=== PATIENT | male | born 1965 | race Two or more races ===

== ENCOUNTER 2023-12-30 11:50 | Emergency (ER) | payer MEDICAID ==
[~2023-12-30] VITALS: Ht 182.9 cm; Wt 86.6 kg
[2023-12-30 12:01] VITALS: O2SAT 98
[2023-12-30] MEDS ORDERED: CEFTRIAXONE 1GM BAG (ER ONLY) 0 ML IV ONE (12:26)
[2023-12-30 12:30] LABS: BASOPHILS % (AUTO) 0.2 % (0.0-2.0); EOSINOPHILS # (AUTO) 0.2 K/uL (0.0-0.7); EOSINOPHILS % (AUTO) 1.5 % (0.0-6.0); HEMATOCRIT 36 % (39-51); HEMOGLOBIN 12.4 g/dL (13.5-17.5); LYMPHOCYTES # (AUTO) 1.1 K/uL (0.8-4.8); LYMPHOCYTES % (AUTO) 8.5 % (20.0-44.0); MEAN CORPUSCULAR HEMOGLOBIN 32 PG (26.0-33.0); MEAN CORPUSCULAR HGB CONC 34 g/dl (31.0-36.0); MEAN CORPUSCULAR VOLUME 95 fL (80-96); MONOCYTES # (AUTO) 0.4 K/uL (0.1-1.30); MONOCYTES % (AUTO) 3.4 % (2.0-12.0); NEUTROPHILS % (AUTO) 86.4 % (43.0-81.0); PLATELET COUNT (AUTO) 377 K/uL (150-450); RED BLOOD CELL COUNT(AUTO) 3.84 MIL/uL (4.5-6.0); RED CELL DISTRIBUTION WIDTH 13.8 % (11.5-15.0); WHITE BLOOD COUNT (AUTO) 12.7 K/uL (4.3-11.0)
[2023-12-30 12:46] LABS: LACTIC ACID 0.8 mmol/L (0.4-2.0)
[2023-12-30] MEDS: CEFEPIME 1 GM in IV D5W 50 ML IV ONE (12:52)
[2023-12-30] MEDS: IV NS 0.9% 1,000 ML BAG IV ONE (12:52)
[2023-12-30 12:54] LABS: APPEARANCE,URINE Clear (CLEAR); BILIRUBIN,URINE Negative (NEGATIVE); BLOOD, URINE Small Ery/uL (NEGATIVE); COLOR,URINE YELLOW (YELLOW); KETONES,URINE Negative (NEGATIVE); LEUKOCYTE ESTERASE ,URINE Negative (NEGATIVE); NITRITE, URINE Negative (NEGATIVE); PH,URINE 5.5 (5.0-8.0); PROTEIN,URINE 100 mg/dl (NEGATIVE); UGLUCOSE Negative (NEGATIVE); UROBILINOGEN,URINE 0.2 EU/dL (0.2)
[2023-12-30 13:04] LABS: CALCIUM, SERUM 8.7 mg/dL (8.5-10.1); CARBON DIOXIDE 23 mmol/L (21-32); CHLORIDE 109 mmol/L (98-107); CREATININE 2.2 mg/dL (0.6-1.3); GLUCOSE 92 mg/dL (74-106); SODIUM SERUM 139 mmol/L (136-145); UREA NITROGEN, BLOOD 32 mg/dL (7-18)
[2023-12-30 13:05] LABS: INR 1.04 (0.91-1.10); PARTIAL THROMBOPLASTIN TIME 32.3 SEC (24.3-34.3); PROTHROMBIN TIME 10.7 SECS (9.2-11.1)
[2023-12-30 13:05] LABS: ADD URINE CULTURE NO; BACTERIA,URINE Few /HPF (None Seen); SQUAMOUS EPITHELIAL CELL,UR Few /HPF (None Seen)
[2023-12-30 13:07] LABS: ALANINE AMINOTRANSFERASE 36 U/L (12-78); ALBUMIN 1.8 g/dL (3.4-5.0); ALKALINE PHOSPHATASE 99 U/L (46-116); ASPARTATE AMINOTRANSFERASE 39 U/L (15-37); BILIRUBIN,DIRECT 0.2 mg/dL (0.0-0.2); BILIRUBIN,TOTAL 0.5 mg/dL (0.2-1.0); TOTAL PROTEIN, SERUM 7.4 g/dL (6.4-8.2)
[2023-12-30] MEDS ORDERED: GLYC2TAB21 GT (13:08)
[2023-12-30] MEDS ORDERED: ALBU2.5V38 IH ×2 (13:08)
[2023-12-30] MEDS ORDERED: AMOX1TAB15 GT (13:08)
[2023-12-30] MEDS ORDERED: ACET160E36 GT ×2 (13:08)
[2023-12-30] MEDS ORDERED: GABA300C GT (13:08)
[2023-12-30] MEDS ORDERED: LACO10SO GT (13:08)
[2023-12-30] MEDS ORDERED: LACT10SO29 GT (13:08)
[2023-12-30] MEDS ORDERED: ATOR20TA GT (13:08)
[2023-12-30] MEDS ORDERED: IPRA0.2S9 IH ×2 (13:08)
[2023-12-30] MEDS ORDERED: FURO40TA5 GT (13:08)
[2023-12-30] MEDS ORDERED: DOCU-141 GT (13:08)
[2023-12-30] MEDS ORDERED: CRAN300T GT (13:08)
[2023-12-30] MEDS ORDERED: NA P133E RC (13:08)
[2023-12-30] MEDS ORDERED: LINE600T12 GT (13:08)
[2023-12-30] MEDS ORDERED: CARV3.122 GT (13:08)
[2023-12-30] MEDS ORDERED: BISA10SU11 RC (13:08)
[2023-12-30] MEDS ORDERED: LOSA25TA27 GT (13:08)
[2023-12-30] MEDS ORDERED: NUTR250L62 GT (13:08)
[2023-12-30] MEDS ORDERED: LEVE100S GT (13:08)
[2023-12-30] MEDS ORDERED: QUET50TA GT (13:09)
[2023-12-30] MEDS ORDERED: MULT-213 GT (13:09)
[2023-12-30] MEDS ORDERED: OXYC5TAB3 GT (13:09)
[2023-12-30] MEDS ORDERED: SENN8.6T19 GT (13:09)
[2023-12-30] MEDS ORDERED: APIX5TAB GT (13:09)
[2023-12-30] MEDS ORDERED: MAGN400O6 GT (13:09)
[2023-12-30] MEDS ORDERED: CLOP75TA15 GT (13:09)
[2023-12-30] MEDS ORDERED: CRAN3875 GT (13:09)
[2023-12-30] MEDS: VANCOMYCIN 1 GM in IV D5W 250 ML IV ONE (13:20)
[2023-12-30] MEDS ORDERED: ACETAMINOPHEN 650 MG/SUPP.RECT RC ONE (14:15)
[2023-12-30] MEDS: ACETAMINOPHEN 650 MG/SUPP.RECT RC ONE (14:28)
[2023-12-30] MEDS ORDERED: NA PHOS,M-B/NA PHOS,DI-BA 1 EA ENEMA RC PRN (16:30)
[2023-12-30] MEDS ORDERED: Z GUARD REMEDY 4 OZ OINT TP PRN (17:00)
[2023-12-30] MEDS: LACOSAMIDE ORAL SOLN 50 MG/5 ML UDC GT SCH (17:00)
[2023-12-30] MEDS ORDERED: Medication Not On Formulary EA (Quetiapine Fumarate (Seroquel) 50 MG) GT SCH (17:00)
[2023-12-30] MEDS: DOCUSATE SODIUM LIQ 100 MG/10 ML UDC PO SCH (17:00)
[2023-12-30] MEDS: LOSARTAN POTASSIUM 25 MG TABLET GT SCH (17:00)
[2023-12-30] MEDS ORDERED: ONDANSETRON HCL/PF 4 MG/2 ML VIAL IVP PRN (17:00)
[2023-12-30] MEDS: GABAPENTIN 300 MG CAPSULE GT SCH (17:00)
[2023-12-30] MEDS ORDERED: ACETAMINOPHEN 325 MG TABLET PO PRN (17:00)
[2023-12-30] MEDS ORDERED: hydrALAZINE HCL IV 20 MG VIAL IV PRN (17:00)
[2023-12-30] MEDS: CARVEDILOL 3.125 MG TABLET GT SCH (17:00)
[2023-12-30] MEDS ORDERED: MORPHINE SULFATE INJ 2 MG/ML DISP.SYRIN IV PRN (17:00)
[2023-12-30] MEDS ORDERED: ALBUTEROL FS 2.5 MG/0.5 ML VIAL.NEB NEB PRN (17:00)
[2023-12-30] MEDS: LEVETIRACETAM SOL (5 ML) 100 MG/ML UDC GT SCH (17:00)
[2023-12-30] MEDS: APIXABAN 5 MG TABLET GT SCH (17:00)
[2023-12-30 17:55] VITALS: BP 165/88; TEMP 100.2; O2SAT 93
[2023-12-30] MEDS ORDERED: ALBUTEROL FS 2.5 MG/0.5 ML VIAL.NEB NEB SCH (19:30)
[2023-12-30] MEDS ORDERED: IPRATROPIUM NEB FS 0.5 MG/2.5 ML AMPUL.NEB NEB SCH (19:30)
[2023-12-30] MEDS ORDERED: GLYCOPYRROLATE 1 MG TABLET GT SCH (21:00)
[2023-12-30] MEDS ORDERED: CEFEPIME 2 GM in IV D5W 100 ML IV SCH (22:00)
[2023-12-30] MEDS ORDERED: ATORVASTATIN 10 MG TABLET GT SCH (22:00)
[2023-12-30] MEDS ORDERED: FUROSEMIDE 40 MG TABLET GT SCH (22:00)
[2023-12-31] MEDS ORDERED: POLYETHYLENE GLYCOL 3350 17 GM POWD.PACK PO SCH (09:00)
[2023-12-31] MEDS ORDERED: CLOPIDOGREL BISULFATE 75 MG TABLET GT SCH (09:00)
[2023-12-31] MEDS ORDERED: VANCOMYCIN HCL 1.25 GM in IV D5W 250 ML IV SCH (13:00)
[2023-12-31] MEDS ORDERED: LACTULOSE 10 G/15 ML UDC (PYXIS) GT SCH (18:00)
== END 2023-12-30 19:11 | disposition short-term general hospital (02) ==
LOC: ER 12:01
DX: A41.89 Other specified sepsis (principal); R65.20 Severe sepsis without septic shock; N17.9 Acute kidney failure, unspecified; J18.8 Other pneumonia, unspecified organism; R00.0 Tachycardia, unspecified; D72.829 Elevated white blood cell count, unspecified; K94.23 Gastrostomy malfunction; E88.09 Other disorders of plasma-protein metabolism, not elsewhere classified; E86.0 Dehydration; R06.03 Acute respiratory distress; Z99.81 Dependence on supplemental oxygen; Z20.822 Contact with and (suspected) exposure to COVID-19
CPT/HCPCS: 99291; 43762; 96365; 71045; 96366; 87426; 84145; 85025; 80048; 87086; 83605; 80076; 81001; 36415; 84484; 85730; 87040 ×2; 87081; 93005; 96368; J3370; J7060; J7030 ×2; J7040; A4223; J0692; J0696

== ENCOUNTER 2024-03-21 11:43 | Inpatient (IN) | payer MEDICAID ==
[~2024-03-21] VITALS: Ht 185.4 cm; Wt 66.2 kg
[~2024-03-21 11:43] MED LIST: ACET160E36 GT; ALBU2.5V38 IH; AMOX1TAB15 GT; APIX5TAB GT; ATOR20TA GT; BISA10SU11 RC; CARV3.122 GT; CLOP75TA15 GT; CRAN300T GT; CRAN3875 GT; DOCU-141 GT; FURO40TA5 GT; GABA300C GT; GLYC2TAB21 GT; IPRA0.2S9 IH; LACO10SO GT; LACT10SO29 GT; LEVE100S GT; LINE600T12 GT; LOSA25TA27 GT; MAGN400O6 GT; MULT-213 GT; NA P133E RC; NUTR250L62 GT; OXYC5TAB3 GT; QUET50TA GT; SENN8.6T19 GT
[2024-03-21 12:28] LABS: APPEARANCE,URINE SLIGHTLY CLOUDY (CLEAR); BILIRUBIN,URINE NEGATIVE (NEGATIVE); BLOOD, URINE 2+ Ery/uL (NEGATIVE); COLOR,URINE YELLOW (YELLOW); KETONES,URINE NEGATIVE (NEGATIVE); LEUKOCYTE ESTERASE ,URINE NEGATIVE (NEGATIVE); NITRITE, URINE NEGATIVE (NEGATIVE); PH,URINE 5.5 (5.0-8.0); PROTEIN,URINE 2+ mg/dl (NEGATIVE); UGLUCOSE NEGATIVE (NEGATIVE); UROBILINOGEN,URINE 0.2 EU/dL (0.2)
[2024-03-21 12:31] LABS: ADD URINE CULTURE NO; BACTERIA,URINE Rare /HPF (None Seen); SQUAMOUS EPITHELIAL CELL,UR Rare /HPF (None Seen)
[2024-03-21] MEDS: IV NS 0.9% 1,000 ML BAG IV ONE (12:40)
[2024-03-21] MEDS: CEFEPIME 1 GM in IV D5W 50 ML IV ONE (12:55)
[2024-03-21] MEDS ORDERED: ACETAMINOPHEN 325 MG TABLET ONE (12:59)
[2024-03-21] MEDS: ACETAMINOPHEN SUSP 80 MG/0.8 ML BOTTLE GT STA (13:00)
[2024-03-21 13:13] LABS: BASOPHILS % (AUTO) 0.2 % (0.0-2.0); EOSINOPHILS # (AUTO) 0.2 K/uL (0.0-0.7); HEMATOCRIT 24 % (39-51); HEMOGLOBIN 7.6 g/dL (13.5-17.5); LYMPHOCYTES # (AUTO) 1.7 K/uL (0.8-4.8); LYMPHOCYTES % (AUTO) 9.9 % (20.0-44.0); MEAN CORPUSCULAR HEMOGLOBIN 32 PG (26.0-33.0); MEAN CORPUSCULAR HGB CONC 31 g/dl (31.0-36.0); MEAN CORPUSCULAR VOLUME 101 fL (80-96); MONOCYTES # (AUTO) 0.4 K/uL (0.1-1.30); MONOCYTES % (AUTO) 2.5 % (2.0-12.0); NEUTROPHILS % (AUTO) 86.4 % (43.0-81.0); PLATELET COUNT (AUTO) 250 K/uL (150-450); RED BLOOD CELL COUNT(AUTO) 2.38 MIL/uL (4.5-6.0); RED CELL DISTRIBUTION WIDTH 17.4 % (11.5-15.0); WHITE BLOOD COUNT (AUTO) 17.4 K/uL (4.3-11.0)
[2024-03-21 13:19] LABS: INR 1.2 (0.91-1.10); PARTIAL THROMBOPLASTIN TIME 27.2 SEC (24.3-34.3); PROTHROMBIN TIME 12.6 SECS (9.2-11.1)
[2024-03-21 13:22] LABS: ALANINE AMINOTRANSFERASE 28 U/L (12-78); ALBUMIN 1.5 g/dL (3.4-5.0); ALKALINE PHOSPHATASE 105 U/L (46-116); ASPARTATE AMINOTRANSFERASE 30 U/L (15-37); BILIRUBIN,DIRECT 0.1 mg/dL (0.0-0.2); BILIRUBIN,TOTAL 0.3 mg/dL (0.2-1.0); CALCIUM, SERUM 10.1 mg/dL (8.5-10.1); CARBON DIOXIDE 18 mmol/L (21-32); CREATININE 3.9 mg/dL (0.6-1.3); GLUCOSE 115 mg/dL (74-106)
[2024-03-21 13:29] LABS: LACTIC ACID 2.2 mmol/L (0.4-2.0)
[2024-03-21] MEDS ORDERED: ZINC220C6 GT (13:30)
[2024-03-21] MEDS ORDERED: FOLI0.4T6 GT (13:30)
[2024-03-21] MEDS ORDERED: AMIN30LI66 GT (13:30)
[2024-03-21] MEDS ORDERED: CARV25TA GT (13:30)
[2024-03-21] MEDS ORDERED: ASCO500L2 GT (13:30)
[2024-03-21] MEDS ORDERED: NUTR150016 GT (13:30)
[2024-03-21] MEDS ORDERED: SACC250C GT (13:30)
[2024-03-21] MEDS ORDERED: AMLO10TA4 GT (13:30)
[2024-03-21] MEDS: VANCOMYCIN 1 GM in IV D5W 250 ML IV ONE (13:30)
[2024-03-21] MEDS ORDERED: VANC50SO3 GT (13:30)
[2024-03-21] MEDS ORDERED: IRON GLYCINATE GT (13:30)
[2024-03-21] MEDS ORDERED: FURO-145 GT (13:30)
[2024-03-21 13:38] LABS: CHLORIDE 126 mmol/L (98-107); SODIUM SERUM 159 mmol/L (136-145); UREA NITROGEN, BLOOD 93 mg/dL (7-18)
[2024-03-21] MEDS ORDERED: Z GUARD REMEDY 4 OZ OINT TP PRN (14:00)
[2024-03-21] MEDS ORDERED: MAG HYDROX/AL HYDROX/SIMETH 30 ML UDC PO PRN (14:00)
[2024-03-21] MEDS ORDERED: MAGNESIUM HYDROXIDE 30 ML UDC PO PRN (14:00)
[2024-03-21] MEDS ORDERED: SODIUM POLYSTYRENE SULFONATE 15 G/60 ML BOTTLE PO ONE (14:00)
[2024-03-21] MEDS ORDERED: ONDANSETRON HCL/PF 4 MG/2 ML VIAL IVP PRN (14:00)
[2024-03-21] MEDS ORDERED: SODIUM BICARBONATE SYR 50 MEQ/50 ML DISP.SYRIN ONE (14:07)
[2024-03-21] MEDS: SODIUM BICARBONATE SYR 50 MEQ/50 ML DISP.SYRIN IV ONE (14:14)
[2024-03-21] MEDS: Calcium Gluconate 1GM/10ML 4.65 MEQ in IV NS 0.9% 100 ML IV ONE (14:18)
[2024-03-21] MEDS: SODIUM POLYSTYRENE SULFONATE 15 G/60 ML BOTTLE GT ONE (14:19)
[2024-03-21] MEDS ORDERED: SODIUM POLYSTYRENE SULFONATE 15 G/60 ML BOTTLE ONE (14:21)
[2024-03-21 15:50] VITALS: BP 116/75; TEMP 98.1; O2SAT 94
[2024-03-21] MEDS ORDERED: APIXABAN 5 MG TABLET GT SCH (17:00)
[2024-03-21 17:12] VITALS: O2SAT 99
[2024-03-21] MEDS: LACOSAMIDE ORAL SOLN 50 MG/5 ML UDC GT SCH (18:39)
[2024-03-21] MEDS: LEVETIRACETAM SOL (5 ML) 100 MG/ML UDC GT SCH (18:39)
[2024-03-21] MEDS: CARVEDILOL 12.5 MG TABLET GT SCH (18:42)
[2024-03-21] MEDS: GABAPENTIN 300 MG CAPSULE GT SCH (18:42)
[2024-03-21] MEDS: QUETIAPINE FUMARATE 25 MG TABLET GT SCH (18:43)
[2024-03-21] MEDS: IV D5W 1,000 ML IV PRN (18:47)
[2024-03-21 19:01] LABS: CALCIUM, SERUM 9.2 mg/dL (8.5-10.1); CREATININE 3.5 mg/dL (0.6-1.3)
[2024-03-21 19:30] VITALS: O2SAT 98
[2024-03-21] MEDS: VANCOMYCIN HCL 125 MG/2.5 ML ORAL.SUSP GT SCH (21:07)
[2024-03-21] MEDS: ATORVASTATIN 10 MG TABLET GT SCH (21:08)
[2024-03-21] MEDS ORDERED: Medication Not On Formulary EA (Cran/Vitc/Mannose/Inulin/Brom (Uti-Stat Liquid) 30 ML) GT SCH (22:00)
[2024-03-21 23:30] VITALS: O2SAT 96
[2024-03-22] VITALS (14 sets, daily range): BP systolic 100–141; BP diastolic 57–73; TEMP 98.5–100.4; O2SAT 93–98
[2024-03-22] MEDS: JEVITY 1.2 CAL 1,000 ML BOTTLE GT PRN (00:56)
[2024-03-22 08:13] LABS: CALCIUM, SERUM 9.3 mg/dL (8.5-10.1); CREATININE 3.7 mg/dL (0.6-1.3); MAGNESIUM 2.3 mg/dL (1.8-2.4); PHOSPHORUS 3.9 mg/dL (2.5-4.9); POTASSIUM 4.6 mmol/L (3.5-5.1)
[2024-03-22] MEDS: FOLIC ACID 1 MG TABLET GT SCH (08:27)
[2024-03-22] MEDS: DOCUSATE SODIUM LIQ 100 MG/10 ML UDC GT SCH (08:27)
[2024-03-22] MEDS: ASCORBIC ACID 500 MG TABLET GT SCH (08:27)
[2024-03-22] MEDS: CLOPIDOGREL BISULFATE 75 MG TABLET GT SCH (08:28)
[2024-03-22] MEDS: AMLODIPINE BESYLATE 10 MG TABLET GT SCH (08:28)
[2024-03-22] MEDS: MULTIVIT W/MINERALS 1 TAB TABLET GT SCH (08:28)
[2024-03-22] MEDS: PROSOURCE / PROSTAT (PYXIS) 30 ML UDC GT SCH (08:30)
[2024-03-22] MEDS: PANTOPRAZOLE 40 MG VIAL IV SCH (08:31)
[2024-03-22] MEDS: ACIDOPHILUS/BULGARICUS 1 EACH TAB.CHEW GT SCH (08:54)
[2024-03-22 09:09] LABS: BASOPHILS % (AUTO) 0.3 % (0.0-2.0); EOSINOPHILS # (AUTO) 0.3 K/uL (0.0-0.7); EOSINOPHILS % (AUTO) 2.2 % (0.0-6.0); LYMPHOCYTES # (AUTO) 1.4 K/uL (0.8-4.8); MEAN CORPUSCULAR HEMOGLOBIN 32 PG (26.0-33.0); MEAN CORPUSCULAR HGB CONC 31 g/dl (31.0-36.0); MEAN CORPUSCULAR VOLUME 102 fL (80-96); MONOCYTES # (AUTO) 0.6 K/uL (0.1-1.30); MONOCYTES % (AUTO) 4.7 % (2.0-12.0); NEUTROPHILS # (AUTO) 9.5 K/uL (1.8-8.9); NEUTROPHILS % (AUTO) 80.8 % (43.0-81.0); PLATELET COUNT (AUTO) 194 K/uL (150-450); RED CELL DISTRIBUTION WIDTH 17.6 % (11.5-15.0); WHITE BLOOD COUNT (AUTO) 11.8 K/uL (4.3-11.0)
[2024-03-22 09:12] LABS: RED BLOOD CELL COUNT(AUTO) 1.89 MIL/uL (4.5-6.0)
[2024-03-22 09:15] LABS: HEMATOCRIT 19 % (39-51)
[2024-03-22] MEDS ORDERED: diphenhydrAMINE HCL 50 MG/ML VIAL IV ONE ×2 (09:30)
[2024-03-22] MEDS: ACETAMINOPHEN 325 MG TABLET PO ONE (11:15)
[2024-03-22] MEDS: LORATADINE 10 MG TABLET PO ONE (11:15)
[2024-03-22 12:19] LABS: ANISOCYTOSIS 1+; BASOPHILS % (MANUAL) 0 % (0.0-2.0); EOSINOPHILS % (MANUAL) 3 % (0-4); LYMPHOCYTES % (MANUAL) 12 % (16-48); MONOCYTES % (MANUAL) 5 % (0-11.0); NEUTROPHILS % (MANUAL) 80 (42-76); PLATELET ESTIMATE ADEQUATE; ROULEAUX FEW
[2024-03-22] MEDS: METRONIDAZOLE 500MG/ NS 100ML 500 MG in PREMIX 1 EA IV SCH (12:44)
[2024-03-22] MEDS: IV 1/2NS 1000 ML 1,000 ML IV ONE (12:55)
[2024-03-22] MEDS: CEFEPIME 1 GM in IV D5W 50 ML IV SCH (12:56)
[2024-03-22] MEDS: NEPRO 1,000 ML BOTTLE GT PRN (13:43)
[2024-03-22 15:36] LABS: CALCIUM, SERUM 9.5 mg/dL (8.5-10.1); CREATININE 3.5 mg/dL (0.6-1.3); POTASSIUM 4.6 mmol/L (3.5-5.1)
[2024-03-22] MEDS: ACETAMINOPHEN 650 MG/20.3 ML UDC GT PRN (20:37)
[2024-03-23] VITALS (27 sets, daily range): BP systolic 110–148; BP diastolic 67–95; TEMP 97.9–100; O2SAT 92–99
[2024-03-23] MEDS: VANCOMYCIN 1 GM in IV D5W 250ml IV SCH (00:35)
[2024-03-23 00:38] LABS: BASOPHILS % (AUTO) 0.2 % (0.0-2.0); EOSINOPHILS # (AUTO) 0.3 K/uL (0.0-0.7); EOSINOPHILS % (AUTO) 2.9 % (0.0-6.0); LYMPHOCYTES # (AUTO) 1.8 K/uL (0.8-4.8); LYMPHOCYTES % (AUTO) 17.1 % (20.0-44.0); MEAN CORPUSCULAR HEMOGLOBIN 32 PG (26.0-33.0); MEAN CORPUSCULAR HGB CONC 33 g/dl (31.0-36.0); MEAN CORPUSCULAR VOLUME 98 fL (80-96); MONOCYTES # (AUTO) 0.5 K/uL (0.1-1.30); NEUTROPHILS # (AUTO) 7.7 K/uL (1.8-8.9); NEUTROPHILS % (AUTO) 74.8 % (43.0-81.0); PLATELET COUNT (AUTO) 202 K/uL (150-450); RED CELL DISTRIBUTION WIDTH 17.4 % (11.5-15.0); WHITE BLOOD COUNT (AUTO) 10.3 K/uL (4.3-11.0)
[2024-03-23 00:49] LABS: RED BLOOD CELL COUNT(AUTO) 1.72 MIL/uL (4.5-6.0)
[2024-03-23 00:51] LABS: HEMATOCRIT 17 % (39-51); HEMOGLOBIN 5.5 g/dL (13.5-17.5)
[2024-03-23 01:17] LABS: BAND % (MANUAL) 2 % (0.0-5.0); LYMPHOCYTES % (MANUAL) 23 % (16-48); MONOCYTES % (MANUAL) 3 % (0-11.0); NEUTROPHILS % (MANUAL) 72 (42-76)
[2024-03-23 10:27] LABS: BASOPHILS % (AUTO) 0.2 % (0.0-2.0); EOSINOPHILS # (AUTO) 0.2 K/uL (0.0-0.7); EOSINOPHILS % (AUTO) 1.5 % (0.0-6.0); HEMATOCRIT 28 % (39-51); HEMOGLOBIN 9.2 g/dL (13.5-17.5); LYMPHOCYTES # (AUTO) 0.9 K/uL (0.8-4.8); LYMPHOCYTES % (AUTO) 8.2 % (20.0-44.0); MEAN CORPUSCULAR HEMOGLOBIN 31 PG (26.0-33.0); MEAN CORPUSCULAR HGB CONC 33 g/dl (31.0-36.0); MEAN CORPUSCULAR VOLUME 95 fL (80-96); MONOCYTES # (AUTO) 0.5 K/uL (0.1-1.30); MONOCYTES % (AUTO) 4.4 % (2.0-12.0); NEUTROPHILS # (AUTO) 9.4 K/uL (1.8-8.9); NEUTROPHILS % (AUTO) 85.7 % (43.0-81.0); PLATELET COUNT (AUTO) 208 K/uL (150-450); RED BLOOD CELL COUNT(AUTO) 2.96 MIL/uL (4.5-6.0); RED CELL DISTRIBUTION WIDTH 16.9 % (11.5-15.0)
[2024-03-23 10:46] LABS: BILIRUBIN,TOTAL 0.4 mg/dL (0.2-1.0); CALCIUM, SERUM 9.8 mg/dL (8.5-10.1); CREATININE 3.4 mg/dL (0.6-1.3); MAGNESIUM 2.1 mg/dL (1.8-2.4); PHOSPHORUS 3.2 mg/dL (2.5-4.9); POTASSIUM 4.6 mmol/L (3.5-5.1); TOTAL PROTEIN, SERUM 7.4 g/dL (6.4-8.2)
[2024-03-23 10:57] LABS: ALBUMIN 1.3 g/dL (3.4-5.0)
[2024-03-23 17:56] LABS: IRON, SERUM 14 ug/dl (50-175); TOTAL IRON BINDING CAPACITY 68 ug/dl (250-450)
[2024-03-23 18:51] LABS: FERRITIN 1561 ng/mL (8-388)
[2024-03-23] MEDS: PANTOPRAZOLE 40 MG VIAL IV SCH (21:15)
[2024-03-24] VITALS (12 sets, daily range): BP systolic 114–137; BP diastolic 73–89; TEMP 97.5–98.6; O2SAT 93–100
[2024-03-24 07:03] LABS: BASOPHILS % (AUTO) 0.2 % (0.0-2.0); EOSINOPHILS # (AUTO) 0.2 K/uL (0.0-0.7); EOSINOPHILS % (AUTO) 1.6 % (0.0-6.0); HEMATOCRIT 29 % (39-51); HEMOGLOBIN 9.3 g/dL (13.5-17.5); LYMPHOCYTES # (AUTO) 1.2 K/uL (0.8-4.8); MEAN CORPUSCULAR HEMOGLOBIN 31 PG (26.0-33.0); MEAN CORPUSCULAR HGB CONC 32 g/dl (31.0-36.0); MEAN CORPUSCULAR VOLUME 96 fL (80-96); MONOCYTES # (AUTO) 0.6 K/uL (0.1-1.30); MONOCYTES % (AUTO) 4.7 % (2.0-12.0); NEUTROPHILS # (AUTO) 10.1 K/uL (1.8-8.9); NEUTROPHILS % (AUTO) 83.5 % (43.0-81.0); PLATELET COUNT (AUTO) 197 K/uL (150-450); WHITE BLOOD COUNT (AUTO) 12.1 K/uL (4.3-11.0)
[2024-03-24 07:08] LABS: PTH, INTACT 26 pg/mL (15-65)
[2024-03-24 07:24] LABS: CALCIUM, SERUM 10.2 mg/dL (8.5-10.1); CREATININE 3.3 mg/dL (0.6-1.3); POTASSIUM 4.5 mmol/L (3.5-5.1)
[2024-03-24 08:10] LABS: *SPE A/G RATIO 0.4 (0.7-1.7); *SPE ALBUMIN 1.9 g/dL (2.9-4.4); *SPE ALPHA-1-GLOBULIN 0.4 g/dL (0.0-0.4); *SPE BETA GLOBULIN 0.9 g/dL (0.7-1.3); *SPE GLOBULIN, TOTAL 4.5 g/dL (2.2-3.9); *SPE M-SPIKE Not Observed g/dL (Not Observed); *SPE PROTEIN TOTAL 6.4 g/dL (6.0-8.5); *SPEGAMMA GLOBULIN 2.2 g/dL (0.4-1.8)
[2024-03-24] MEDS ORDERED: PANTOPRAZOLE 40 MG/PACK PACK NG SCH (09:00)
[2024-03-24] MEDS: FREE WATER VIA TUBE FEEDING GT SCH (09:52)
[2024-03-24] MEDS: THERAHONEY GEL 1.5 OZ TUBE TP SCH ×2 (09:55→12:03)
[2024-03-24] MEDS: DAKINS QUARTER STRENGTH (0.125%) 480 ML BOTTLE TOP SCH (09:55)
[2024-03-25] VITALS (12 sets, daily range): BP systolic 118–156; BP diastolic 77–95; TEMP 97.9–101.6; O2SAT 95–100
[2024-03-25] MEDS ORDERED: DEXTROSE 50%-WATER 50 ML DISP.SYRIN IV PRN (01:30)
[2024-03-25] MEDS: BLOOD SUGAR DIAGNOSTIC 1 EACH STRIP IN SCH (06:02)
[2024-03-25] MEDS ORDERED: MAGNESIUM HYDROXIDE 30 ML UDC GT PRN (07:07)
[2024-03-25] MEDS ORDERED: MAG HYDROX/AL HYDROX/SIMETH 30 ML UDC GT PRN (07:07)
[2024-03-25 08:21] LABS: CALCIUM, SERUM 10.2 mg/dL (8.5-10.1); CREATININE 2.8 mg/dL (0.6-1.3); POTASSIUM 4.9 mmol/L (3.5-5.1)
[2024-03-25 10:20] LABS: BASOPHILS % (AUTO) 0.2 % (0.0-2.0); EOSINOPHILS # (AUTO) 0.2 K/uL (0.0-0.7); EOSINOPHILS % (AUTO) 2.1 % (0.0-6.0); HEMATOCRIT 33 % (39-51); HEMOGLOBIN 10.4 g/dL (13.5-17.5); LYMPHOCYTES # (AUTO) 1.1 K/uL (0.8-4.8); LYMPHOCYTES % (AUTO) 9.9 % (20.0-44.0); MEAN CORPUSCULAR HEMOGLOBIN 32 PG (26.0-33.0); MEAN CORPUSCULAR HGB CONC 32 g/dl (31.0-36.0); MEAN CORPUSCULAR VOLUME 101 fL (80-96); MONOCYTES # (AUTO) 0.6 K/uL (0.1-1.30); NEUTROPHILS # (AUTO) 8.7 K/uL (1.8-8.9); NEUTROPHILS % (AUTO) 81.8 % (43.0-81.0); PLATELET COUNT (AUTO) 216 K/uL (150-450); RED BLOOD CELL COUNT(AUTO) 3.27 MIL/uL (4.5-6.0); RED CELL DISTRIBUTION WIDTH 17.6 % (11.5-15.0); WHITE BLOOD COUNT (AUTO) 10.7 K/uL (4.3-11.0)
[2024-03-25] MEDS: IV D5W 1,000 ML IV ONE (11:25)
[2024-03-25] MEDS: INSULIN REGULAR, HUMAN 100 UNIT/ML 3 ML VIAL SQ PRN (12:46)
[2024-03-25] MEDS: CEFTRIAXONE 2 G in IV D5W 100 ML IV SCH (14:13)
[2024-03-25] MEDS: FREE WATER VIA TUBE FEEDING GT SCH (21:53)
[2024-03-26] VITALS (9 sets, daily range): BP systolic 102–134; BP diastolic 68–86; TEMP 98.2–100.2; O2SAT 96–100
[2024-03-26 08:20] LABS: CALCIUM, SERUM 9.2 mg/dL (8.5-10.1); CREATININE 2.7 mg/dL (0.6-1.3); POTASSIUM 4.9 mmol/L (3.5-5.1)
[2024-03-26 08:21] LABS: BASOPHILS % (AUTO) 0.3 % (0.0-2.0); EOSINOPHILS # (AUTO) 0.2 K/uL (0.0-0.7); EOSINOPHILS % (AUTO) 1.8 % (0.0-6.0); HEMATOCRIT 34 % (39-51); HEMOGLOBIN 10.3 g/dL (13.5-17.5); LYMPHOCYTES # (AUTO) 0.8 K/uL (0.8-4.8); LYMPHOCYTES % (AUTO) 9.8 % (20.0-44.0); MEAN CORPUSCULAR HEMOGLOBIN 32 PG (26.0-33.0); MEAN CORPUSCULAR HGB CONC 30 g/dl (31.0-36.0); MEAN CORPUSCULAR VOLUME 107 fL (80-96); MONOCYTES # (AUTO) 0.4 K/uL (0.1-1.30); MONOCYTES % (AUTO) 4.6 % (2.0-12.0); NEUTROPHILS # (AUTO) 7.2 K/uL (1.8-8.9); NEUTROPHILS % (AUTO) 83.5 % (43.0-81.0); PLATELET COUNT (AUTO) 227 K/uL (150-450); RED BLOOD CELL COUNT(AUTO) 3.19 MIL/uL (4.5-6.0); RED CELL DISTRIBUTION WIDTH 18.2 % (11.5-15.0); WHITE BLOOD COUNT (AUTO) 8.6 K/uL (4.3-11.0)
[2024-03-26] MEDS: PANTOPRAZOLE 40 MG/PACK PACK GT SCH (08:41)
[2024-03-26 09:40] LABS: LYMPHOCYTES % (MANUAL) 7 % (16-48); MONOCYTES % (MANUAL) 2 % (0-11.0); NEUTROPHILS % (MANUAL) 91 (42-76); PLATELET ESTIMATE ADEQUATE
[2024-03-26 09:41] LABS: ANISOCYTOSIS 1+
[2024-03-26] MEDS: IV D5W 1,000 ML IV ONE (10:23)
[2024-03-27] VITALS (13 sets, daily range): BP systolic 11–135; BP diastolic 68–87; TEMP 97.2–100; O2SAT 94–100
[2024-03-27 08:00] LABS: BASOPHILS % (AUTO) 0.6 % (0.0-2.0); EOSINOPHILS # (AUTO) 0.1 K/uL (0.0-0.7); EOSINOPHILS % (AUTO) 1.6 % (0.0-6.0); HEMATOCRIT 32 % (39-51); HEMOGLOBIN 10.5 g/dL (13.5-17.5); LYMPHOCYTES # (AUTO) 1.3 K/uL (0.8-4.8); LYMPHOCYTES % (AUTO) 17.2 % (20.0-44.0); MEAN CORPUSCULAR HEMOGLOBIN 32 PG (26.0-33.0); MEAN CORPUSCULAR HGB CONC 33 g/dl (31.0-36.0); MEAN CORPUSCULAR VOLUME 97 fL (80-96); MONOCYTES # (AUTO) 0.6 K/uL (0.1-1.30); MONOCYTES % (AUTO) 7.9 % (2.0-12.0); NEUTROPHILS # (AUTO) 5.7 K/uL (1.8-8.9); NEUTROPHILS % (AUTO) 72.7 % (43.0-81.0); PLATELET COUNT (AUTO) 224 K/uL (150-450); RED BLOOD CELL COUNT(AUTO) 3.32 MIL/uL (4.5-6.0); RED CELL DISTRIBUTION WIDTH 16.1 % (11.5-15.0); WHITE BLOOD COUNT (AUTO) 7.8 K/uL (4.3-11.0)
[2024-03-27 08:08] LABS: CALCIUM, SERUM 9.7 mg/dL (8.5-10.1); CREATININE 2.7 mg/dL (0.6-1.3)
[2024-03-28] VITALS (12 sets, daily range): BP systolic 91–114; BP diastolic 63–89; TEMP 98–100; O2SAT 94–98
[2024-03-28] MEDS ORDERED: VANC125C11 GT (10:32)
[2024-03-29] VITALS (10 sets, daily range): BP systolic 90–110; BP diastolic 59–71; TEMP 98.6–100.7; O2SAT 92–98
[2024-03-29] MEDS: NEPRO 1,000 ML BOTTLE GT PRN (05:31)
[2024-03-29 09:34] LABS: BASOPHILS % (AUTO) 0.2 % (0.0-2.0); EOSINOPHILS # (AUTO) 0.1 K/uL (0.0-0.7); EOSINOPHILS % (AUTO) 0.4 % (0.0-6.0); HEMATOCRIT 39 % (39-51); LYMPHOCYTES # (AUTO) 2.9 K/uL (0.8-4.8); LYMPHOCYTES % (AUTO) 13.9 % (20.0-44.0); MEAN CORPUSCULAR HEMOGLOBIN 31 PG (26.0-33.0); MEAN CORPUSCULAR HGB CONC 31 g/dl (31.0-36.0); MEAN CORPUSCULAR VOLUME 99 fL (80-96); MONOCYTES # (AUTO) 1.9 K/uL (0.1-1.30); MONOCYTES % (AUTO) 9.2 % (2.0-12.0); NEUTROPHILS # (AUTO) 15.7 K/uL (1.8-8.9); NEUTROPHILS % (AUTO) 76.3 % (43.0-81.0); PLATELET COUNT (AUTO) 234 K/uL (150-450); RED BLOOD CELL COUNT(AUTO) 3.94 MIL/uL (4.5-6.0); RED CELL DISTRIBUTION WIDTH 17.1 % (11.5-15.0); WHITE BLOOD COUNT (AUTO) 20.5 K/uL (4.3-11.0)
[2024-03-29 09:49] LABS: ALBUMIN 1.7 g/dL (3.4-5.0); BILIRUBIN,TOTAL 0.3 mg/dL (0.2-1.0); CALCIUM, SERUM 9.8 mg/dL (8.5-10.1); CREATININE 3.1 mg/dL (0.6-1.3); PHOSPHORUS 5.1 mg/dL (2.5-4.9); POTASSIUM 4.1 mmol/L (3.5-5.1); TOTAL PROTEIN, SERUM 8.1 g/dL (6.4-8.2)
[2024-03-30] VITALS (13 sets, daily range): BP systolic 89–119; BP diastolic 62–66; TEMP 97.6–99.1; O2SAT 94–99
[2024-03-30 07:15] LABS: APPEARANCE,URINE CLEAR (CLEAR); BILIRUBIN,URINE NEGATIVE (NEGATIVE); BLOOD, URINE 2+ Ery/uL (NEGATIVE); COLOR,URINE YELLOW (YELLOW); KETONES,URINE NEGATIVE (NEGATIVE); LEUKOCYTE ESTERASE ,URINE NEGATIVE (NEGATIVE); NITRITE, URINE NEGATIVE (NEGATIVE); PH,URINE 5.5 (5.0-8.0); PROTEIN,URINE 2+ mg/dl (NEGATIVE); UGLUCOSE NEGATIVE (NEGATIVE); UROBILINOGEN,URINE 0.2 EU/dL (0.2)
[2024-03-30 07:16] LABS: BASOPHILS % (AUTO) 0.1 % (0.0-2.0); EOSINOPHILS % (AUTO) 0.1 % (0.0-6.0); HEMATOCRIT 31 % (39-51); HEMOGLOBIN 9.9 g/dL (13.5-17.5); LYMPHOCYTES # (AUTO) 1.7 K/uL (0.8-4.8); LYMPHOCYTES % (AUTO) 12.9 % (20.0-44.0); MEAN CORPUSCULAR HEMOGLOBIN 31 PG (26.0-33.0); MEAN CORPUSCULAR HGB CONC 32 g/dl (31.0-36.0); MEAN CORPUSCULAR VOLUME 96 fL (80-96); MONOCYTES # (AUTO) 0.4 K/uL (0.1-1.30); MONOCYTES % (AUTO) 3.1 % (2.0-12.0); NEUTROPHILS # (AUTO) 11.1 K/uL (1.8-8.9); NEUTROPHILS % (AUTO) 83.8 % (43.0-81.0); PLATELET COUNT (AUTO) 217 K/uL (150-450); RED CELL DISTRIBUTION WIDTH 16.3 % (11.5-15.0); WHITE BLOOD COUNT (AUTO) 13.3 K/uL (4.3-11.0)
[2024-03-30 07:36] LABS: CALCIUM, SERUM 9.1 mg/dL (8.5-10.1); CREATININE 3.8 mg/dL (0.6-1.3); POTASSIUM 3.4 mmol/L (3.5-5.1)
[2024-03-30 07:50] LABS: ADD URINE CULTURE NO; BACTERIA,URINE Rare /HPF (None Seen); RBC,URINE 0-2 /HPF (0-2); WBC,URINE 0-2 /HPF (0-3)
[2024-03-30 07:51] LABS: URINE AMORPHOUS URATE Moderate /HPF (None Seen)
[2024-03-30 07:55] LABS: COARSE GRANULAR CASTS,URINE Few /LPF (None Seen)
[2024-03-30] MEDS ORDERED: [UNRECOGNIZED DRUG - OTHER] IV ONE (08:00)
[2024-03-30] MEDS ORDERED: DEXTROSE 5% IV ONE (08:00)
[2024-03-30] MEDS: IV D5W 500 ML IV ONE (09:17)
[2024-03-30] MEDS: POTASSIUM CL. PREMIX PERIPHER. 50 ML IV SCH (09:43)
[2024-03-30] MEDS: DAKINS QUARTER STRENGTH (0.125%) 480 ML BOTTLE TOP SCH (10:45)
[2024-03-30 14:07] LABS: SQUAMOUS EPITHELIAL CELL,UR None Seen /HPF (None Seen)
[2024-03-30] MEDS: IV D5W 1,000 ML IV PRN (15:23)
[2024-03-31] VITALS (12 sets, daily range): BP systolic 84–132; BP diastolic 54–76; TEMP 97.2–99; O2SAT 95–99
[2024-03-31 07:20] LABS: BASOPHILS % (AUTO) 0.2 % (0.0-2.0); EOSINOPHILS # (AUTO) 0.1 K/uL (0.0-0.7); EOSINOPHILS % (AUTO) 0.5 % (0.0-6.0); HEMATOCRIT 27 % (39-51); HEMOGLOBIN 8.7 g/dL (13.5-17.5); LYMPHOCYTES # (AUTO) 1.4 K/uL (0.8-4.8); LYMPHOCYTES % (AUTO) 11.4 % (20.0-44.0); MEAN CORPUSCULAR HEMOGLOBIN 31 PG (26.0-33.0); MEAN CORPUSCULAR HGB CONC 33 g/dl (31.0-36.0); MEAN CORPUSCULAR VOLUME 94 fL (80-96); MONOCYTES # (AUTO) 0.4 K/uL (0.1-1.30); MONOCYTES % (AUTO) 3.5 % (2.0-12.0); NEUTROPHILS # (AUTO) 10.5 K/uL (1.8-8.9); NEUTROPHILS % (AUTO) 84.4 % (43.0-81.0); PLATELET COUNT (AUTO) 220 K/uL (150-450); RED BLOOD CELL COUNT(AUTO) 2.85 MIL/uL (4.5-6.0); RED CELL DISTRIBUTION WIDTH 15.9 % (11.5-15.0); WHITE BLOOD COUNT (AUTO) 12.5 K/uL (4.3-11.0)
[2024-03-31 07:47] LABS: CALCIUM, SERUM 8.6 mg/dL (8.5-10.1); CREATININE 3.6 mg/dL (0.6-1.3); POTASSIUM 3.4 mmol/L (3.5-5.1)
[2024-03-31 12:22] LABS: ALBUMIN 1.5 g/dL (3.4-5.0); BILIRUBIN,DIRECT 0.1 mg/dL (0.0-0.2); BILIRUBIN,TOTAL 0.3 mg/dL (0.2-1.0); TOTAL PROTEIN, SERUM 7.2 g/dL (6.4-8.2)
[2024-03-31 13:47] LABS: PARTIAL THROMBOPLASTIN TIME 28.9 SEC (24.3-34.3)
[2024-03-31] MEDS: REMDESIVIR (CHARGED) 200 MG, *LOADING DOSE 1 EA in IV NS 0.9% 210 ML IV ONE (13:48)
[2024-03-31 13:49] LABS: D-DIMER 11.92 mg/L(FEU (0.17-0.50)
[2024-04-01] VITALS (13 sets, daily range): BP systolic 90–110; BP diastolic 52–63; TEMP 97.2–98.1; O2SAT 94–100
[2024-04-01 08:00] LABS: INR 1.2 (0.91-1.10); PARTIAL THROMBOPLASTIN TIME 30.1 SEC (24.3-34.3); PROTHROMBIN TIME 12.6 SECS (9.2-11.1)
[2024-04-01 08:20] LABS: BILIRUBIN,DIRECT 0.1 mg/dL (0.0-0.2); BILIRUBIN,TOTAL 0.2 mg/dL (0.2-1.0); TOTAL PROTEIN, SERUM 6.9 g/dL (6.4-8.2)
[2024-04-01 08:34] LABS: ALBUMIN 1.4 g/dL (3.4-5.0)
[2024-04-01] MEDS: REMDESIVIR (CHARGED) 100 MG in IV NS 0.9% 100 ML IV SCH (12:14)
[2024-04-02] VITALS (9 sets, daily range): BP systolic 89–98; BP diastolic 44–64; TEMP 97.9–98.2; O2SAT 97–100
[2024-04-02 08:37] LABS: EOSINOPHILS # (AUTO) 0.1 K/uL (0.0-0.7); EOSINOPHILS % (AUTO) 0.5 % (0.0-6.0); HEMATOCRIT 26 % (39-51); HEMOGLOBIN 8.4 g/dL (13.5-17.5); LYMPHOCYTES # (AUTO) 1.1 K/uL (0.8-4.8); LYMPHOCYTES % (AUTO) 9.5 % (20.0-44.0); MEAN CORPUSCULAR HEMOGLOBIN 31 PG (26.0-33.0); MEAN CORPUSCULAR HGB CONC 32 g/dl (31.0-36.0); MEAN CORPUSCULAR VOLUME 95 fL (80-96); MONOCYTES # (AUTO) 0.4 K/uL (0.1-1.30); MONOCYTES % (AUTO) 3.8 % (2.0-12.0); NEUTROPHILS # (AUTO) 9.7 K/uL (1.8-8.9); NEUTROPHILS % (AUTO) 86.2 % (43.0-81.0); PLATELET COUNT (AUTO) 205 K/uL (150-450); RED BLOOD CELL COUNT(AUTO) 2.75 MIL/uL (4.5-6.0); RED CELL DISTRIBUTION WIDTH 16.3 % (11.5-15.0); WHITE BLOOD COUNT (AUTO) 11.3 K/uL (4.3-11.0)
[2024-04-02 08:51] LABS: INR 1.2 (0.91-1.10); PARTIAL THROMBOPLASTIN TIME 31.7 SEC (24.3-34.3); PROTHROMBIN TIME 12.6 SECS (9.2-11.1)
[2024-04-02 08:56] LABS: BILIRUBIN,TOTAL 0.3 mg/dL (0.2-1.0); CALCIUM, SERUM 8.9 mg/dL (8.5-10.1); CREATININE 3.5 mg/dL (0.6-1.3); MAGNESIUM 1.6 mg/dL (1.8-2.4); PHOSPHORUS 4.9 mg/dL (2.5-4.9); POTASSIUM 3.4 mmol/L (3.5-5.1)
[2024-04-02 09:36] LABS: ALBUMIN 1.4 g/dL (3.4-5.0)
[2024-04-02 10:40] LABS: BILIRUBIN,TOTAL 0.2 mg/dL (0.2-1.0); TOTAL PROTEIN, SERUM 7.1 g/dL (6.4-8.2)
[2024-04-02 10:48] LABS: BILIRUBIN,DIRECT 0.1 mg/dL (0.0-0.2)
[2024-04-02 11:01] LABS: ALBUMIN 1.4 g/dL (3.4-5.0)
[2024-04-03] VITALS (12 sets, daily range): BP systolic 89–105; BP diastolic 55–71; TEMP 97.7–98.9; O2SAT 98–100
[2024-04-03 06:43] LABS: BASOPHILS % (AUTO) 0.1 % (0.0-2.0); EOSINOPHILS % (AUTO) 0.5 % (0.0-6.0); HEMATOCRIT 27 % (39-51); HEMOGLOBIN 8.8 g/dL (13.5-17.5); LYMPHOCYTES # (AUTO) 1.1 K/uL (0.8-4.8); LYMPHOCYTES % (AUTO) 7.8 % (20.0-44.0); MEAN CORPUSCULAR HEMOGLOBIN 31 PG (26.0-33.0); MEAN CORPUSCULAR HGB CONC 32 g/dl (31.0-36.0); MEAN CORPUSCULAR VOLUME 95 fL (80-96); MONOCYTES # (AUTO) 0.5 K/uL (0.1-1.30); MONOCYTES % (AUTO) 3.7 % (2.0-12.0); NEUTROPHILS # (AUTO) 12.2 K/uL (1.8-8.9); NEUTROPHILS % (AUTO) 87.9 % (43.0-81.0); PLATELET COUNT (AUTO) 210 K/uL (150-450); RED BLOOD CELL COUNT(AUTO) 2.87 MIL/uL (4.5-6.0); RED CELL DISTRIBUTION WIDTH 15.9 % (11.5-15.0); WHITE BLOOD COUNT (AUTO) 13.9 K/uL (4.3-11.0)
[2024-04-03 06:44] LABS: EOSINOPHILS # (AUTO) 0.1 K/uL (0.0-0.7)
[2024-04-03 07:02] LABS: INR 1.24 (0.91-1.10); PARTIAL THROMBOPLASTIN TIME 36.5 SEC (24.3-34.3)
[2024-04-03 07:25] LABS: BILIRUBIN,DIRECT 0.1 mg/dL (0.0-0.2); BILIRUBIN,TOTAL 0.3 mg/dL (0.2-1.0); CALCIUM, SERUM 9.1 mg/dL (8.5-10.1); CREATININE 3.2 mg/dL (0.6-1.3); MAGNESIUM 1.8 mg/dL (1.8-2.4); POTASSIUM 3.3 mmol/L (3.5-5.1)
[2024-04-03] MEDS ORDERED: POTASSIUM CHLORIDE 20 MEQ POWDER PACKET GT SCH (22:00)
[2024-04-03] MEDS: POTASSIUM CHLORIDE 20 MEQ POWDER PACKET GT ONE (23:00)
[2024-04-04] VITALS (12 sets, daily range): BP systolic 90–110; BP diastolic 60–68; TEMP 97.3–98.9; O2SAT 97–100
[2024-04-04 08:01] LABS: BASOPHILS % (AUTO) 0.1 % (0.0-2.0); EOSINOPHILS # (AUTO) 0.1 K/uL (0.0-0.7); EOSINOPHILS % (AUTO) 0.7 % (0.0-6.0); HEMATOCRIT 26 % (39-51); HEMOGLOBIN 8.4 g/dL (13.5-17.5); LYMPHOCYTES # (AUTO) 1.3 K/uL (0.8-4.8); LYMPHOCYTES % (AUTO) 11.2 % (20.0-44.0); MEAN CORPUSCULAR HEMOGLOBIN 30 PG (26.0-33.0); MEAN CORPUSCULAR HGB CONC 32 g/dl (31.0-36.0); MEAN CORPUSCULAR VOLUME 95 fL (80-96); MONOCYTES # (AUTO) 0.7 K/uL (0.1-1.30); MONOCYTES % (AUTO) 5.9 % (2.0-12.0); NEUTROPHILS # (AUTO) 9.3 K/uL (1.8-8.9); NEUTROPHILS % (AUTO) 82.1 % (43.0-81.0); PLATELET COUNT (AUTO) 202 K/uL (150-450); RED BLOOD CELL COUNT(AUTO) 2.77 MIL/uL (4.5-6.0); RED CELL DISTRIBUTION WIDTH 16.7 % (11.5-15.0); WHITE BLOOD COUNT (AUTO) 11.4 K/uL (4.3-11.0)
[2024-04-04 08:03] LABS: CALCIUM, SERUM 8.8 mg/dL (8.5-10.1); CREATININE 2.9 mg/dL (0.6-1.3); POTASSIUM 3.5 mmol/L (3.5-5.1)
[2024-04-05] VITALS (37 sets, daily range): BP systolic 43–127; BP diastolic 32–93; TEMP 98–100; O2SAT 95–100
[2024-04-05] MEDS ORDERED: EPINEPHRINE (1:10,000) SYRINGE 1 MG/10 ML DISP.SYRIN IVP ONE (20:03)
[2024-04-05] MEDS: NOREPINEPHRINE 32 MG in IV NS 0.9% 218 ML IV PRN ×2 (20:31→20:43)
[2024-04-05 22:04] LABS: ABG BASE EXCESS -19.7 mmol/L (-2.0-3.0); ABG PCO2 25.3 mmHg (35.0-48.0); ABG PH 7.113 (7.350-7.450); ABG PO2 122.5 mmHg (83.0-108.0); ABG TOTAL HEMOGLOBIN 5.6 G/dL (13.5-17.5); AaDO2 565.2 mmHg; COHb 0.3 % (0.5-1.5); MetHb 0.3 % (0.0-1.5); O2Hb 96.4 % (94.0-97.0); SITE, ABG Right Radial; VT, ABG 500 mL
[2024-04-05] MEDS: PHENYLEPHRINE 10 MG/ML VIAL ONE (22:59)
[2024-04-05] MEDS: SODIUM BICARBONATE SYR 50 MEQ/50 ML DISP.SYRIN ONE (22:59)
[2024-04-05] MEDS: Sodium Bicarbonate 50 MEQ in IV D5W 1,000 ML IV PRN (23:00)
[2024-04-05] MEDS: PHENYLEPHRINE 100 MG in IV NS 0.9% 240 ML IV PRN (23:01)
[2024-04-06] VITALS (39 sets, daily range): BP systolic 0–85; BP diastolic 30–52; TEMP 97.9–101; O2SAT 78–100
[2024-04-06 04:33] LABS: NT-PRO BNP 4531 pg/mL (0-125)
[2024-04-06 04:38] LABS: LACTIC ACID 5.5 mmol/L (0.4-2.0)
[2024-04-06] MEDS: CEFEPIME 2 GM in IV D5W 100 ML IV SCH (08:00)
[2024-04-06 08:40] LABS: BILIRUBIN,TOTAL 2.1 mg/dL (0.2-1.0); CREATININE 3.4 mg/dL (0.6-1.3); POTASSIUM 2.8 mmol/L (3.5-5.1); TOTAL PROTEIN, SERUM 5.5 g/dL (6.4-8.2)
[2024-04-06] MEDS ORDERED: Sodium Bicarbonate 50 MEQ in IV D5W 1,000 ML IV SCH (09:00)
[2024-04-06] MEDS: Sodium Bicarbonate 150 MEQ in IV D5W 1,000 ML IV SCH (09:38)
[2024-04-06 09:48] LABS: BASOPHILS % (AUTO) 0.1 % (0.0-2.0); EOSINOPHILS % (AUTO) 0.2 % (0.0-6.0); HEMATOCRIT 22 % (39-51); LYMPHOCYTES # (AUTO) 0.7 K/uL (0.8-4.8); LYMPHOCYTES % (AUTO) 3.5 % (20.0-44.0); MEAN CORPUSCULAR HEMOGLOBIN 31 PG (26.0-33.0); MEAN CORPUSCULAR HGB CONC 32 g/dl (31.0-36.0); MEAN CORPUSCULAR VOLUME 96 fL (80-96); MONOCYTES # (AUTO) 0.4 K/uL (0.1-1.30); MONOCYTES % (AUTO) 2.1 % (2.0-12.0); NEUTROPHILS # (AUTO) 18.9 K/uL (1.8-8.9); NEUTROPHILS % (AUTO) 94.1 % (43.0-81.0); PLATELET COUNT (AUTO) 70 K/uL (150-450); RED BLOOD CELL COUNT(AUTO) 2.28 MIL/uL (4.5-6.0); RED CELL DISTRIBUTION WIDTH 16.9 % (11.5-15.0); WHITE BLOOD COUNT (AUTO) 20.1 K/uL (4.3-11.0)
[2024-04-06] MEDS: VASOPRESSIN INJ 40 UNIT in IV NS 0.9% 38 ML IV PRN (10:06)
[2024-04-06] MEDS ORDERED: CALCIUM CHLORIDE 1,000 MG/10 ML DISP.SYRIN ONE (10:07)
[2024-04-06] MEDS ORDERED: CALCIUM CHLORIDE 1,000 MG/10 ML DISP.SYRIN IV ONE (10:18)
[2024-04-06] MEDS ORDERED: Magnesium 1 GM/2 ML VIAL IV ONE (10:29)
[2024-04-06 11:12] LABS: BILIRUBIN,DIRECT 1.8 mg/dL (0.0-0.2)
[2024-04-06 11:37] LABS: ANISOCYTOSIS 1+; BAND % (MANUAL) 1 % (0.0-5.0); EOSINOPHILS % (MANUAL) 0 % (0-4); LYMPHOCYTES % (MANUAL) 5 % (16-48); MONOCYTES % (MANUAL) 3 % (0-11.0); NEUTROPHILS % (MANUAL) 91 (42-76); PLATELET ESTIMATE DECREASED
[2024-04-06] MEDS ORDERED: VANCOMYCIN HCL 125 MG/2.5 ML ORAL.SUSP GT SCH (12:00)
== END 2024-04-06 14:11 | DRG 710 ==
LOC: ER 11:45 → UNDOADMIN 13:42 → TELE 13:42 → TELE1 15:33 → TELE-TD 17:18 → TELE1 03-23 09:58 → ICU 04-05 19:58
PROVIDERS: ADMIT Nurse Practitioner Acute Care; ATTEND Nurse Practitioner Acute Care
PROC: 30233N1 Transfusion of Nonautologous Red Blood Cells into Peripheral Vein, Percutaneous Approach (ICD-10-PCS; 2024-03-22)
PROC: 0KBN0ZZ Excision of Right Hip Muscle, Open Approach (ICD-10-PCS; principal; 2024-03-29)
PROC: 0KBP0ZZ Excision of Left Hip Muscle, Open Approach (ICD-10-PCS; 2024-03-29)
PROC: 0JBF0ZZ Excision of Left Upper Arm Subcutaneous Tissue and Fascia, Open Approach (ICD-10-PCS; 2024-03-29)
PROC: 0JBD0ZZ Excision of Right Upper Arm Subcutaneous Tissue and Fascia, Open Approach (ICD-10-PCS; 2024-03-29)
PROC: 5A2204Z Restoration of Cardiac Rhythm, Single (ICD-10-PCS; 2024-04-05)
PROC: 5A1935Z Respiratory Ventilation, Less than 24 Consecutive Hours (ICD-10-PCS; 2024-04-05)
PROC: 0BH17EZ Insertion of Endotracheal Airway into Trachea, Via Natural or Artificial Opening (ICD-10-PCS; 2024-04-05)
PROC: 5A2204Z Restoration of Cardiac Rhythm, Single (ICD-10-PCS; 2024-04-06)
DX: A41.89 Other specified sepsis (principal); N17.0 Acute kidney failure with tubular necrosis; J12.82 Pneumonia due to coronavirus disease 2019; J96.20 Acute and chronic respiratory failure, unspecified whether with hypoxia or hypercapnia; R65.21 Severe sepsis with septic shock; G93.41 Metabolic encephalopathy; A04.72 Enterocolitis due to Clostridium difficile, not specified as recurrent; R64 Cachexia; E43 Unspecified severe protein-calorie malnutrition; D68.59 Other primary thrombophilia; A41.59 Other Gram-negative sepsis; L89.113 Pressure ulcer of right upper back, stage 3; L89.154 Pressure ulcer of sacral region, stage 4; E11.649 Type 2 diabetes mellitus with hypoglycemia without coma; E11.22 Type 2 diabetes mellitus with diabetic chronic kidney disease; U07.1 COVID-19; L89.123 Pressure ulcer of left upper back, stage 3; N18.9 Chronic kidney disease, unspecified; I50.9 Heart failure, unspecified; I13.2 Hypertensive heart and chronic kidney disease with heart failure and with stage 5 chronic kidney disease, or end stage renal disease; I21.A1 Myocardial infarction type 2; N18.6 End stage renal disease; R13.10 Dysphagia, unspecified; Y95 Nosocomial condition; Z74.01 Bed confinement status; Z86.73 Personal history of transient ischemic attack (TIA), and cerebral infarction without residual deficits; Z79.01 Long term (current) use of anticoagulants; Z79.02 Long term (current) use of antithrombotics/antiplatelets; Z79.51 Long term (current) use of inhaled steroids; Z79.899 Other long term (current) drug therapy; Z99.2 Dependence on renal dialysis; Z99.11 Dependence on respirator [ventilator] status; Z93.1 Gastrostomy status; Z93.0 Tracheostomy status; Z78.9 Other specified health status; G40.909 Epilepsy, unspecified, not intractable, without status epilepticus; E88.09 Other disorders of plasma-protein metabolism, not elsewhere classified; E87.20 Acidosis, unspecified; E78.5 Hyperlipidemia, unspecified; E86.0 Dehydration; E86.1 Hypovolemia; E87.0 Hyperosmolality and hypernatremia; E87.5 Hyperkalemia; D63.8 Anemia in other chronic diseases classified elsewhere; E86.9 Volume depletion, unspecified; L89.890 Pressure ulcer of other site, unstageable
CPT/HCPCS: 31720; 36415; 36600; 71045-TC; 76770-TC; 80048-TC; 80053-TC; 80076-TC; 80202-TC; 81001; 82248-TC; 82550-TC; 82607-TC; 82728-TC; 82803-TC; 82962-TC; 83540-TC; 83605-TC; 83735-TC; 83880; 83970; 84100-TC; 84155; 84165; 84484-TC; 85025-TC; 85045-TC; 85378-TC; 85610-TC; 85730-TC; 86850-TC; 87040-TC; 87081-TC; 87086-TC; 87186-TC; 92950-TC; 94002-TC; 94003-TC; 94640-TC; 94760-TC; 94762-TC; 94799-TC; A4216; A4223; A4623; A6253; A6403; A7526; G0378; J0171; J0610; J0692; J0696; J1815; J1953; J2048; J2470; J3370; J3475; J3480; J3490; J7030; J7040; J7042; J7050; J7060; J7070; P9016